=== PATIENT | female | born 1990 | race African-American/Black ===

== ENCOUNTER → 2022-04-30 | Outpatient (CLI) | payer OTHER ==
[~2022-04-30] MED LIST: LIDO700A30 TP; NAPR-1176 MT
== END | disposition home or self-care (01) ==
LOC: MRI 09:59
PROVIDERS: ATTEND Specialist
DX: S40.012A Contusion of left shoulder, initial encounter (principal); M25.812 Other specified joint disorders, left shoulder; M70.61 Trochanteric bursitis, right hip; X58.XXXA Exposure to other specified factors, initial encounter; Y93.89 Activity, other specified; Y92.89 Other specified places as the place of occurrence of the external cause; Y99.8 Other external cause status
CPT/HCPCS: 73030